=== PATIENT | female | born 1990 | race American Indian/Alaskan Native ===

== ENCOUNTER 2021-04-09 08:05 | Inpatient (IN) | payer OTHER ==
--- NOTE | 2021-04-09 09:48 | History and Physical Report ---
History of Present Illness Date of examination: 04/09/21 Date of admission: 04/09/21 09:26 Chief complaint: Contractions History of present illness: 30 year old presents to L&D with complaint of contractions. records requested and received. Patient received care at [facility]. Was also seen by [facility] due to obesity and graves disease. LMP 05/27/2020. EDC 04/07/2021 (based on US). significant for the following: obesity, macrosomia (EFW on 03/31/2021 was 10 lb 10 oz {4824 grams} at [facility] office), elevated 1 hour sugar test with normal 3 hour OGTT, excessive weight gain during , enlarged thyroid/graves disease (not on any medications for), abdominal hernia, abnormal pap. labs are as follows: B+, antibody screen negative, rubella immune, varicella nonimmune, hepatitis B surface antigen negative, HIV negative, RPR nonreactive, gonorrhea negative, chlamydia negative, trichomonas negative, OSB negative, materniT 21 low risk, GBS negative, 1 hour sugar test 147 (normal 3 hour OGTT). Past History Past Medical History: other (obesity, graves disease/hyperthyroidism, umbilical hernia, vitamin D deficiency) Past Surgical History: no surgical history [facility] History: denies: chlamydia, gonorrhea, hepatitis B, hepatitis C, herpes, HIV, syphilis, trichomonas Family/Genetic History: diabetes, hypertension, cancer Social history: lives with family, full code. denies: smoking, alcohol abuse, prescription drug abuse, IV drug use - Obstetrical History Expected Date of Delivery: 04/07/21 Actual Gestation: 40 Week(s) 2 Day(s) : 2 Para: 1 Hx # Term Pregnancies: 1 Number of Pregnancies: 0 Spontaneous Abortions: 0 Induced : 0 Number of Living Children: 1 Medications and Allergies Allergies Allergy/AdvReac Type Severity Reaction Status Date / Time No Known Allergies Allergy Verified 04/09/21 08:17 Active Meds: Active Medications Acetaminophen (Acetaminophen 325 Mg Tab) 650 mg PO Q4H PRN PRN Reason: Pain, Mild (1-3) Carboprost Tromethamine (Carboprost Tromethamine 250 Mcg/1 Ml Inj) 250 mcg IM ONCE PRN PRN Reason: Uterine Bleeding Ephedrine Sulfate (Ephedrine Sulfate 50 Mg/1 Ml Inj) 10 mg IV Q2M PRN PRN Reason: Hypotension Fentanyl (Fentanyl 100 Mcg/2 Ml Inj) 100 mcg IV Q2H PRN PRN Reason: Pain,Severe (7-10) LABOR PAIN Lactated Ringer's (Lactated Ringers) 1,000 mls @ 125 mls/hr IV DIRECT ZAHRA Oxytocin/Sodium Chloride (Pitocin/Ns 30 Unit/500ml) 30 units in 500 mls @ 40 mls/hr IV TITR ZAHRA; Protocol Ampicillin Sodium (Ampicillin/Ns 2 Gm/100 Ml) 2 gm in 100 mls @ 100 mls/hr IV ONCE ONE; Protocol Stop: 04/09/21 10:59 Ampicillin Sodium (Ampicillin/Ns 1 Gm/50 Ml) 1 gm in 50 mls @ 100 mls/hr IV Q4H ZAHRA; Protocol Lidocaine (Lidocaine (2%) 20 Mg/1 Ml Vial 20 Ml Mdv) 20 ml INFILTRATI ONCE ONE Stop: 04/09/21 10:01 Loperamide HCl (Loperamide 2 Mg Cap) 2 mg PO ONCE PRN PRN Reason: give with Hemabate Methylergonovine Maleate (Methylergonovine Maleate 0.2 Mg/Ml Vial) 0.2 mg IM ONCE PRN PRN Reason: Uterine Bleeding Mineral Oil (Mineral Oil 30 Ml Oral Liqd) 30 ml PO QHS PRN PRN Reason: Constipation Misoprostol (Misoprostol 200 Mcg Tab) 800 mcg NC ONCE PRN PRN Reason: Uterine Bleeding Nalbuphine HCl (Nalbuphine 10 Mg/1 Ml Inj) 10 mg IV Q2H PRN PRN Reason: Pain, Moderate (4-6) Oxytocin (Oxytocin 10 Unit/1 Ml Inj) 10 unit IM ONCE PRN PRN Reason: Uterine Bleeding Terbutaline Sulfate (Terbutaline 1 Mg/1 Ml Inj) 0.25 mg SUB-Q ONCE PRN PRN Reason: Hyperstimulation/Hypertonicity Review of Systems All systems: negative (contractions) - Vital Signs Vital signs: Vital Signs Pulse BP 101 H 147/95 04/09/21 08:31 04/09/21 08:31 Temp Pulse Resp BP Pulse Ox 96 H 146/93 97 04/09/21 09:46 04/09/21 08:46 04/09/21 09:46 - Physical Exam Abdomen: Positive: normal appearance, soft. Negative: distention, tenderness, guarding, rigidity Genitourinary (Female): Positive: normal external genitalia, normal perenium. Negative: perineal/vulvar lesions Vagina: Positive: normal moisture Uterus: Positive: enlarged (large for dates). Negative: tender Anus/Rectum: Positive: normal perianal skin Extremities: Positive: edema (bilateral dependent edema) - Obstetrical Uterine Contraction Monitor Mode: External Cervical Dilatation: 5 Cervical Effacement Percentage: 80 station: -3 Uterine Contraction Pattern: Regular Uterine Contraction Intensity: Moderate Results Result Diagrams: 04/09/21 09:47 All other labs normal. Assessment and Plan A: at 40 weeks, 2 days gestation. Active labor. GBS negative. macrosomia. Obesity. PIH. Graves disease/hyperthyroidism. P: Admit. PIH labs. section due to macrosomia. Consulted with Dr. Natarajan re: macrosomia and other risk factors for shoulder dystocia. Dr. Natarajan recommends section. Informed patient of MD recommendation for section and orders put in. Discussed MD recommendation for C/S with patient. Patient refused section. Discussed with patient risks associated with attempting vaginal with macrosomic fetus, excessive maternal weight gain, and elevated 1 hour sugar test. Advised patient of all risks including shoulder dystocia with potential for injury {including brachial plexus injury and oxygen deprivation and/or } and mat ernal injury, hemorrhage, emergent operative delivery, lacerations of canal. Patient states she understands the risks and is willing to assume the risks and wants to proceed with labor and vaginal in spite of these risks.
[2021-04-09] MEDS ORDERED: AMPICILLIN/NS 2 GM/100 ML 2 GM/100 ML BAG IV ONE (10:00)
[2021-04-09] MEDS ORDERED: fentaNYL 100 MCG/2 ML INJ IV PRN (10:00)
[2021-04-09] MEDS ORDERED: METOCLOPRAMIDE 10 MG/2 ML INJ IV SCH (10:00)
[2021-04-09] MEDS ORDERED: LIDOCAINE (2%) 20 MG/1 ML VIAL 20 ML MDV INFILTRATI ONE (10:00)
[2021-04-09] MEDS ORDERED: OXYTOCIN DRIP 30 UNITS/500 ML BAG IV SCH ×2 (10:00→23:45)
[2021-04-09] MEDS ORDERED: LACTATED RINGERS 1,000 ML IV SCH (10:00)
[2021-04-09] MEDS ORDERED: ePHEDrine SULFATE 50 MG/1 ML INJ IV PRN ×2 (10:00→12:00)
[2021-04-09] MEDS ORDERED: MINERAL OIL 30 ML ORAL LIQD PO PRN (10:00)
[2021-04-09] MEDS ORDERED: miSOPROStol 200 MCG TAB PR PRN (10:00)
[2021-04-09] MEDS ORDERED: BICITRA ORAL LIQD 30ML PO SCH (10:00)
[2021-04-09] MEDS ORDERED: CARBOPROST TROMETHAMINE 250 MCG/1 ML INJ IM PRN (10:00)
[2021-04-09] MEDS ORDERED: ACETAMINOPHEN 325 MG TAB PO PRN (10:00)
[2021-04-09] MEDS ORDERED: NalbUPHINE 10 MG/1 ML INJ IV PRN (10:00)
[2021-04-09] MEDS ORDERED: OXYTOCIN 10 UNIT/1 ML INJ IM PRN (10:00)
[2021-04-09] MEDS ORDERED: TERBUTALINE 1 MG/1 ML INJ SUB-Q PRN (10:00)
[2021-04-09] MEDS ORDERED: METHYLERGONOVINE MALEATE 0.2 MG/ML VIAL IM PRN (10:00)
[2021-04-09] MEDS ORDERED: LOPERAMIDE 2 MG CAP PO PRN (10:00)
[2021-04-09] MEDS ORDERED: FAMOTIDINE 20 MG/2 ML INJ IV SCH (10:00)
[2021-04-09 10:20] LABS: Hematocrit 38.6 % (30.3-42.9); Hemoglobin 12.5 gm/dl (10.1-14.3); Mean Corpuscular HGB Conc 32 % (30-34); Mean Corpuscular Volume 84 fl (79-97); Platelet Count 238 K/mm3 (140-440); Red Blood Count 4.57 M/mm3 (3.65-5.03); Red Cell Distribution Width 13.4 % (13.2-15.2)
[2021-04-09] MEDS: LACTATED RINGERS 1,000 ML IV SCH ×2 (10:44→12:31)
[2021-04-09 10:48] LABS: Hepatitis C Virus Antibody Non-Reactive (NonReactive)
[2021-04-09 11:01] LABS: Alanine Aminotransferase 10 units/L (7-56); Albumin 3.8 g/dL (3.9-5); BUN/Creatinine Ratio 30; Blood Urea Nitrogen 9 mg/dL (7-17); Calcium 9.2 mg/dL (8.4-10.2); Hemolysis Index 14; Uric Acid 2.7 mg/dL (3.5-7.6)
[2021-04-09] MEDS ORDERED: GENTAMICIN 100 MG in SODIUM CHLORIDE 0.9% 100 ML IV SCH (11:30)
--- NOTE | 2021-04-09 11:33 | Event Note ---
Date: 04/09/21 Temp. 98.2. Mild maternal tachycardia. WBC 16.8. Patient states she may have been leaking fluid since last night. No tachycardia. Ampicillin and Gentamicin ordered. Urine C&S also ordered.
--- NOTE | 2021-04-09 11:34 | Anesthesia Consultation ---
Anesthesia Consult and Med Hx Date of service: 04/09/21 - Airway Anesthetic Teeth Evaluation: Poor ROM Head & Neck: Adequate Mental/Hyoid Distance: Adequate Mallampati Class: Class II Intubation Access Assessment: Probably Good - Pulmonary Exam CTA: Yes - Cardiac Exam Cardiac Exam: RRR - Pre-Operative Health Status ASA Pre-Surgery Classification: ASA2 Proposed Anesthetic Plan: Epidural - Pulmonary Hx Smoking: Yes (former x 10 months) Hx Asthma: No Hx Respiratory Symptoms: No SOB: No COPD: No Home Oxygen Therapy: No Hx Pneumonia: No Hx Sleep Apnea: No - Cardiovascular System Hx Hypertension: No Hx Coronary Artery Disease: No Hx Heart Attack/AMI: No Hx Angina: No Hx Percutaneous Transluminal Coronary Angioplasty (PTCA): No Hx Cardia Arrhythmia: Yes (2019 r/t Hyperthyroid none currently) Hx Pacemaker: No Hx Internal Defibrillator: No Hx Valvular Heart Disease: No Hx Heart Murmur: No Hx Peripheral Vascular Disease: No - Central Nervous System Hx Seizures: No CVA: No Hx Back Pain: Yes Hx Psychiatric Problems: No - Gastrointestinal Hx Ulcer: No Hx Gastroesophageal Reflux Disease: Yes - Endocrine Hx Renal Disease: No Hx End Stage Renal Disease: No Hx Cirrhosis: No Hx Liver Disease: No Hx Insulin Dependent Diabetes: No Hx Non-Insulin Dependent Diabetes: No Hx Thyroid Disease: No Hx Hypothyroidism: No Hx Hyperthyroidism: Yes - Hematic Hx Anemia: No Hx Sickle Cell Disease: No - Other Systems Hx Alcohol Use: No Hx Substance Use: No Hx Cancer: No Hx Obesity: Yes
--- NOTE | 2021-04-09 11:35 | Progress Note ---
Labor Epidural - Labor Epidural Start Time: 10:55 Stop Time: 11:13 Performed by:: ANJELICA MADDEN Procedure: Patient is requesting a laboring epidural for laboring pain. Patient IDed, H&P reviewed, all questions and concerns were answered, and consent was signed. Timeout was performed at bedside. Patient in sitting position. Sterile prep and drape was performed. [3] ml of 1% lidocaine skin wheal at L[3]- L [4]. 17- gauge Tuohy epidural needle was advanced to loss of resistance with saline technique 6cm. Single dural perforation via 25 guage spinal needle placed through the shaft of Epidural needle. Positive CSF via spinal needle. Negative CSF negative blood via Epidural needle. Epidural catheter advanced to [10] centimeters. [NEGATIVE] Aspiration [NEGATIVE] test dose. Negative Paresthesia. Sterile dressing applied. Patient tolerated procedure.
--- NOTE | 2021-04-09 11:51 | Event Note ---
Date: 04/09/21 SVE /-3. Patient has received epidural and is now comfortable.
[2021-04-09] MEDS ORDERED: fentaNYL-BUPIV 2 MCG/ML-0.125% 200 MCG/100 ML BAG EPIDURAL SCH (12:00)
[2021-04-09] MEDS ORDERED: NALOXONE 2 MG/2 ML INJ IV PRN (12:00)
[2021-04-09] MEDS ORDERED: GENTAMICIN/NS 100 MG/100 ML 100 MG/100 ML BAG IV SCH (12:30)
--- NOTE | 2021-04-09 13:22 | Event Note ---
Date: 04/09/21 FHR tracing now with minimal to absent variability, baseline heart rate of 145 with occasional variable FHR deceleration. Cervix is unchanged and station is still high (6/90/-3 to -4). Position change, IV fluid bolus, and oxygen per face mask did not improve FHR tracing. No acceleration noted with scalp stimulation. Patient states she will now accept a section for delivery. Called and informed Dr. Natarajan of FHR tracing and patient agrees to section for delivery. C/S orders are in. Team notified.
--- NOTE | 2021-04-09 13:59 | Anesthesia Day of Surgery ---
Anesthesia Day of Surgery - Day of Surgery Patient Examined: Yes Patient H&P Reviewed: Yes Patient is NPO: Yes Beta Blockers: No Cardiac Clearance: No Pulmonary Clearance: No Morteza's Test: Negative
[2021-04-09] MEDS ORDERED: AMPICILLIN/NS 1 GM/50 ML 1 GM/50 ML BAG IV SCH (14:00)
[2021-04-09] MEDS ORDERED: ceFAZolin/Water 2 GM/20 ML 2 GM/20 ML SYRINGE IV ONE (14:12)
[2021-04-09 15:14] LABS: Free T4 (Free Thyroxine) 1.07 ng/dL (0.76-1.46)
[2021-04-09] MEDS ORDERED: AMPICILLIN/NS 2 GM/100 ML 2 GM/100 ML BAG IV SCH (17:00)
[2021-04-09] MEDS ORDERED: BUPIVACAINE/PF (0.5%) 5 MG/1 ML 30 ML VIAL INFILTRATI ONE (17:42)
[2021-04-09] MEDS ORDERED: ACETAMINOPHEN 500 MG TAB PO ONE (18:00)
[2021-04-09] MEDS ORDERED: PHENYLEPHRINE/NS 1,000 MCG/10 ML SYRINGE (OR USE) IV ONE (18:04)
[2021-04-09] MEDS ORDERED: ONDANSETRON 4 MG/2 ML INJ ONE (18:21)
[2021-04-09] MEDS ORDERED: LIDOCAINE MPF (2%) 20 MG/1 ML VIAL 5 ML ONE (19:46)
[2021-04-09] MEDS ORDERED: miSOPROStol 100 MCG TAB ONE (19:52)
[2021-04-09] MEDS ORDERED: BUPIVACAINE/PF (0.25%) 2.5 MG/ML 30 ML VIAL INFILTRATI ONE (20:15)
--- NOTE | 2021-04-09 20:19 | Event Note ---
Date: 04/09/21 LATE ENTRY: I spoke with pt and it took her more than 4hrs to decide to have section. pt had chorio and had to be started on amp and gent. The OR is not available and will proceed when same is available. pt to continue on oxygen until baby is delivered. Will also RAMIREZ culture with febrile morbidity, blood culture, urine culture and chest Xray. Plan of care discussed with pt and nurse. NICU and anesthesiologist aware.
--- NOTE | 2021-04-09 20:51 | Procedure Note ---
OB Delivery Note - Delivery Date of Delivery: 04/09/21 Surgeon: MAYLIN COBB Estimated blood loss: other (1097cc) - Section Preop diagnosis: nonreassuring FHR tracing, other (covid 19 positive, morbid obesity, LGA) Postop diagnosis: same (and PPH) section procedure: primary low transverse Disposition: floor Complications: intra-op hemorrhage Narrative: Date: 04/09/21 Surgeon: Maylin Cobb MD Non Acoustic Operator: Dr. April Valdez Preop Dx: IUP at 39.0wks, morbid obesity, febrile morbidity with chorio, Covid 19 positive Postop Dx: same Procedure : Primary Low Transverse Section Anesthesia: Epidural Intake: 2900cc Output: 350cc EBL: 1097cc by QBL After the risks, benefits and alternatives of procedure discussed, patient signed consents and was taken to the operating room. Pt was given epidural anesthesia. After same was adequate, patient was prepped and draped in the usua l sterile fashion. Sheehan catheter in place and draining clear urine. Pt was given prophylactic antibiotic per protocol and time out was done Pfannenstiel skin incision was made and taken sharply to the fascia and the incision extended using electrocautery. Superior edge of the fascia was grasped with dony clamps and the rectus muscle using blunt dissection and also using electrocautery. Lower portion of the fascia also sharply. Rectus muscle in the midline and Peritoneal cavity entered bluntly and extended with good visualization of the bladder. Harvey retractor placed without difficulty. The bladder flap was created sharply using metzenbaum scissors. Lower uterine segment then entered transversely and amniotic sac entered using allys clamps. Uterine incision extended using bandage scissors. Infant delivered, bulb suctioned, cord clamped and baby handed to waiting pediatricians. Placenta then delivered completely and uterine cavity cleared of all clots and debri. The uterus was not exteriorized and midline extension above the bladder also and closed in 2 layers using 0-monocryl suture in a running locked fashion and then an additional layer of imbrication suture. Excellent hemostasis noted. Surgicel powder placed without difficulty. The gutters were cleared of clots and debri and anterior peritoneum closed using 3-0 vicryl suture; Figure of 8 suture placed to left rectus muscle for active vessel bleeding. After same was hemostatic, the rectus muscle was reapproximated using 0-vicryl suture. Rectus fascia closed with 0-vicryl suture in a continuous fashion and the subcutaneous tissue copiously irrigated with normal saline and same re- approximated using 3-0 vicryl suture. Excellent hemostasis remains. The skin was closed with 4-0 monocryl suture and steristrips placed with pressure dressing. Sponge, lap, instrument and needle counts x3 were normal. Patient tolerated the procedure well and was taken to recovery room stable. Pt treated with IM methergine for uterine atony that was severe and IV pitocin and cytotec give per rectum as well. CBC to be done in recovery room and urine to be sent for culture with febrile morbidity. Findings: Viable female , APGARS 9/9 and weight 4460g. Fibroid uterus anteriorly seen 2x3cm, both tubes had extensive filmy adhesion to both ovaries bilaterally. The ovaries appear wnl. - Infant A at 1 minute: 9 at 5 minutes: 9 Gender: Female (wt 4460g; cloudy amniotic fluid)
[2021-04-09] MEDS: GENTAMICIN 450 MG in SODIUM CHLORIDE 0.9% 100 ML IV SCH (21:00)
--- NOTE | 2021-04-09 22:31 | XRay Report ---
XR chest 1V ap INDICATION / CLINICAL INFORMATION: Covid positive, febrile morbidity. COMPARISON: None available. FINDINGS: SUPPORT DEVICES: None. HEART /PULMONARY VASCULATURE: Heart is enlarged. No significant pulmonary vasculature congestion. LUNGS / PLEURA: No focal airspace consolidation. No sizable pleural effusion. No pneumothorax. IMPRESSION: Cardiac enlargement without overt failure or other acute chest process. Signer Name: Aleksandar Hammonds MD Signed: 04/09/2021 10:27 PM Workstation Name: [id number]
[2021-04-09 22:37] LABS: Hemoglobin 11.1 gm/dl (10.1-14.3); Mean Corpuscular HGB Conc 32 % (30-34); Mean Corpuscular Volume 84 fl (79-97); Platelet Count 219 K/mm3 (140-440); Red Blood Count 4.14 M/mm3 (3.65-5.03); Red Cell Distribution Width 13.7 % (13.2-15.2)
[2021-04-09 22:38] LABS: Bilirubin,Urine NEG (Negative); Blood,Urine MOD (Negative); Color,Urine Straw (Yellow); Mucus,Urine FEW /HPF; Protein,Urine <15 mg/dL mg/dL (Negative); Urobilinogen,Urine < 2.0 mg/dL (<2.0)
[2021-04-09 22:44] LABS: Amphetamine Screen,Urine Negative; Benzodiazepines Screen,Urine Negative; Cannabinoid Screen,Urine Negative; Cocaine Screen,Urine Negative; Methadone Screen,Urine Negative; Opiate Screen,Urine Negative
[2021-04-09] MEDS ORDERED: LANOLIN/ZINC/DIMETHICONE (LANSINOH) 7 GM TP PRN (23:29)
[2021-04-09] MEDS ORDERED: PROMETHAZINE 25 MG RECT SUPP PR PRN (23:29)
[2021-04-09] MEDS ORDERED: ONDANSETRON 4 MG/2 ML INJ IV PRN (23:29)
[2021-04-09] MEDS ORDERED: WITCH HAZEL/ GLYCERIN PAD TP PRN (23:29)
[2021-04-09] MEDS ORDERED: NALOXONE 0.4 MG/1 ML INJ IV PRN (23:29)
[2021-04-09] MEDS ORDERED: IBUPROFEN 600 MG TAB PO PRN (23:29)
[2021-04-10] MEDS: MORPHINE 4 MG/1 ML INJ IV PRN ×2 (00:02→04:29)
[2021-04-10] MEDS: AMPICILLIN/NS 2 GM/100 ML 2 GM/100 ML BAG IV SCH ×4 (00:57→22:20)
[2021-04-10] MEDS ORDERED: HYDROmorphone 1 MG/1 ML INJ IV PRN (01:20)
[2021-04-10 02:31] LABS: Band Neutrophils # (Manual) 2.2 K/mm3; Basophils % (Manual) 0 % (0.0-1.8); Eosinophils % (Manual) 0 % (0.0-4.3); RBC Morphology Normal; Total Cells Counted 100
[2021-04-10] MEDS: FERROUS SULFATE 325 MG TAB PO SCH (09:46)
[2021-04-10] MEDS: oxyCODONE /ACETAMINOPHEN 5-325MG TAB PO PRN ×3 (09:46→22:35)
--- NOTE | 2021-04-10 10:46 | Progress Note ---
Assessment and Plan A: POD #1 +Covid Hyperthyroidism Chorio VSS with Mild Tachycardia P: Follow Routine PostOp Orders Continue Standard Covid Isolation and Precautions Continue IV ABX as ordered Subjective - Subjective Date of service: 04/10/21 Patient reports: appetite normal, voiding normally, pain well controlled, ambulating normally : doing well, bottle feeding (and ) Objective - Vital Signs Latest vital signs: Vital Signs Temp Pulse Resp BP BP Pulse Ox Pulse Ox 04/10/21 07:35 98.2 F 108 H 21 140/74 95 04/10/21 04:51 97.7 F 99 H 20 114/69 92 04/09/21 23:00 96 04/09/21 22:25 106 H 18 130/78 98 04/09/21 22:18 114 H 103/64 99 04/09/21 22:14 111 H 105/64 04/09/21 22:13 111 H 98 04/09/21 22:10 114 H 18 115/56 98 04/09/21 22:08 114 H 115/56 98 04/09/21 22:03 117 H 126/59 98 04/09/21 22:00 99.0 F 116 H 20 122/55 98 04/09/21 21:58 116 H 122/55 98 04/09/21 21:54 112 H 126/59 04/09/21 21:53 113 H 98 04/09/21 21:49 116 H 84 04/09/21 21:48 121 H 96 04/09/21 21:45 114 H 16 127/62 96 04/09/21 21:44 114 H 83 L 04/09/21 21:43 56 L 127/62 85 04/09/21 21:38 124 H 131/59 77 L 04/09/21 21:33 111 H 124/59 96 04/09/21 21:28 112 H 129/62 98 04/09/21 21:25 122 H 20 129/62 97 04/09/21 21:23 116 H 96 04/09/21 21:18 107 H 127/66 95 04/09/21 21:13 108 H 137/68 98 04/09/21 21:10 112 H 17 135/60 97 04/09/21 21:09 112 H 135/60 04/09/21 21:08 106 H 96 04/09/21 21:04 107 H 158/60 04/09/21 21:03 102 H 98 04/09/21 20:58 108 H 147/76 100 04/09/21 20:55 98.8 F 109 H 18 147/76 99 04/09/21 20:53 105 H 139/67 99 04/09/21 20:48 107 H 136/66 100 04/09/21 20:43 103 H 138/68 100 04/09/21 20:41 108 H 90 04/09/21 20:40 108 H 22 138/68 90 04/09/21 20:38 105 H 17 141/68 100 04/09/21 20:34 102 H 139/65 04/09/21 20:33 102 H 18 139/65 93 04/09/21 20:29 104 H 92 04/09/21 20:28 107 H 20 129/74 98 04/09/21 20:23 99.7 F H 106 H 20 118/57 97 04/09/21 17:47 128 H 100 04/09/21 17:44 98.9 F 130 H 14 112/58 112/58 100 04/09/21 17:42 124 H 100 04/09/21 17:38 134 H 106/59 04/09/21 17:37 123 H 100 04/09/21 17:32 124 H 100 04/09/21 17:27 127 H 100 04/09/21 17:22 128 H 100 04/09/21 17:17 126 H 99 04/09/21 17:12 131 H 100 04/09/21 17:07 133 H 100 04/09/21 17:04 101.1 F H 20 100 04/09/21 17:02 124 H 100 04/09/21 16:59 127 H 102/52 04/09/21 16:57 139 H 100 04/09/21 16:52 137 H 100 04/09/21 16:47 126 H 100 04/09/21 16:42 131 H 100 04/09/21 16:37 130 H 100 04/09/21 16:32 133 H 100 04/09/21 16:28 136 H 104/65 04/09/21 16:27 137 H 100 04/09/21 16:22 131 H 100 04/09/21 16:17 129 H 100 04/09/21 16:12 134 H 100 04/09/21 16:07 126 H 100 04/09/21 16:02 129 H 100 04/09/21 15:57 126 H 122/53 100 04/09/21 15:52 125 H 100 04/09/21 15:47 125 H 100 04/09/21 15:42 129 H 100 04/09/21 15:37 126 H 100 04/09/21 15:32 121 H 100 04/09/21 15:29 124 H 92 04/09/21 15:27 120 H 110/66 85 04/09/21 15:22 123 H 84 04/09/21 15:17 121 H 100 04/09/21 15:12 119 H 100 04/09/21 15:07 117 H 100 04/09/21 15:02 114 H 100 04/09/21 14:57 116 H 80/46 100 04/09/21 14:56 121 H 94 04/09/21 14:52 110 H 100 04/09/21 14:47 117 H 100 04/09/21 14:45 117 H 114/64 04/09/21 14:42 118 H 100 04/09/21 14:39 126 H 82 L 04/09/21 14:37 119 H 100 04/09/21 14:32 123 H 99 04/09/21 14:27 118 H 106/57 100 04/09/21 14:23 125 H 118/59 04/09/21 14:22 128 H 100 04/09/21 14:17 113 H 100 04/09/21 14:12 113 H 100 04/09/21 14:07 122 H 100 04/09/21 14:02 119 H 100 04/09/21 13:58 108 H 113/58 04/09/21 13:57 109 H 100 04/09/21 13:52 116 H 100 04/09/21 13:47 109 H 100 04/09/21 13:42 112 H 100 04/09/21 13:37 117 H 100 04/09/21 13:32 119 H 100 04/09/21 13:27 120 H 122/72 100 04/09/21 13:22 129 H 100 04/09/21 13:17 122 H 100 04/09/21 13:12 113 H 100 04/09/21 13:07 116 H 100 04/09/21 13:02 105 H 100 04/09/21 12:58 114 H 116/59 04/09/21 12:57 108 H 100 04/09/21 12:52 109 H 100 04/09/21 12:47 104 H 100 04/09/21 12:42 128 H 100 04/09/21 12:37 119 H 100 04/09/21 12:32 119 H 100 04/09/21 12:27 122 H 100 04/09/21 12:26 115 H 103/54 04/09/21 12:25 120 H 91/50 04/09/21 12:22 117 H 100 04/09/21 12:19 111 H 84/48 04/09/21 12:17 107 H 100 04/09/21 12:15 106 H 85/48 04/09/21 12:12 107 H 100 04/09/21 12:09 108 H 102/58 04/09/21 12:07 113 H 100 04/09/21 12:06 112 H 99/53 04/09/21 12:02 118 H 100 04/09/21 12:00 114 H 99/57 04/09/21 11:57 110 H 100 04/09/21 11:56 116 H 119/55 04/09/21 11:52 114 H 100 04/09/21 11:49 106 H 103/55 04/09/21 11:47 114 H 100 04/09/21 11:45 105 H 112/60 04/09/21 11:42 112 H 99 04/09/21 11:39 109 H 100/56 04/09/21 11:37 111 H 98 04/09/21 11:35 107 H 105/58 04/09/21 11:33 20 112/60 04/09/21 11:32 103 H 100 04/09/21 11:27 120 H 100 04/09/21 11:24 106 H 141/79 04/09/21 11:22 110 H 100 04/09/21 11:19 110 H 136/75 04/09/21 11:17 112 H 100 04/09/21 11:14 117 H 142/70 04/09/21 11:12 118 H 99 04/09/21 11:09 112 H 134/67 04/09/21 11:08 109 H 74 L 04/09/21 11:07 115 H 98 04/09/21 11:04 110 H 139/73 04/09/21 11:02 104 H 92 04/09/21 10:56 103 H 90 04/09/21 10:55 101 H 90 04/09/21 10:50 113 H 99 04/09/21 10:45 105 H 98 04/09/21 10:42 105 H 136/75 04/09/21 10:40 103 H 99 Intake and Output 04/09/21 04/10/21 04/10/21 22:59 06:59 14:59 Intake Total 2500 515 Output Total 2900 Balance 2500 -2385 Intake: IV 2500 275 AMPICILLIN/NS 2 GM/100 ML 100 2 gm In 100 ml @ 100 mls /hr IV Q6H ZAHRA Rx#: [id number] CLEOCIN 900 MG/50 mL 900 50 mg In 50 ml @ 100 mls/hr IV Q8H ZAHRA Rx#:[id number] Left Forearm 125 Oral 240 Output: Urine 2900 Indwelling Catheter 1900 Other: Total, Intake Amount 120 Total, Output Amount 400 # Voids Indwelling Catheter 1 - Exam Breasts: Present: normal Cardiovascular: Present: Regular rate Lungs: Present: Clear to auscultation, Normal air movement Abdomen: Present: normal appearance, soft, normal bowel sounds Uterus: Present: normal, firm, fundal height below umbilicus Extremities: Present: normal Incision: Present: dry, dressed - Labs Labs: Abnormal lab results 04/09/21 04/09/21 04/09/21 Range/Units 09:47 10:14 21:40 WBC 22.4 H (4.5-11.0) K/mm3 MCH 27 L (28-32) pg Seg Neuts % (Manual) 82.0 H (40.0-70.0) % Lymphocytes % (Manual) 3.0 L (13.4-35.0) % Seg Neutrophils # Man 18.4 H (1.8-7.7) K/mm3 Lymphocytes # (Manual) 0.7 L (1.2-5.4) K/mm3 Monocytes # (Manual) 1.1 H (0.0-0.8) K/mm3 Sodium 133 L (137-145) mmol/L Carbon Dioxide 16 L (22-30) mmol/L Creatinine 0.3 L (0.6-1.2) mg/dL Uric Acid 2.7 L (3.5-7.6) mg/dL Alkaline Phosphatase 156 H (35-129) units/L Lactate Dehydrogenase 251 H (91-180) units/L Albumin 3.8 L (3.9-5) g/dL SARS-CoV-2 (PCR) Positive A (Negative)
[2021-04-10 11:09] LABS: Red Blood Count 4.29 M/mm3 (3.65-5.03)
[2021-04-10 11:10] LABS: Hematocrit 36.1 % (30.3-42.9); Hemoglobin 11.6 gm/dl (10.1-14.3); Mean Corpuscular HGB Conc 32 % (30-34); Mean Corpuscular Volume 84 fl (79-97); Platelet Count 296 K/mm3 (140-440); Red Cell Distribution Width 13.7 % (13.2-15.2)
[2021-04-10 11:55] LABS: Basophils % (Manual) 0 % (0.0-1.8); Eosinophils % (Manual) 0 % (0.0-4.3); Platelet Estimate Consistent w Auto; RBC Morphology Normal; Total Cells Counted 100
--- NOTE | 2021-04-10 15:08 | Post Anesthesia Evaluation ---
- Post Anesthesia Evaluation Patient Participated: Yes Airway Patent: Yes Stable Respiratory Function: Yes Nausea/Vomiting: No Temp > 96.8F: Yes Pain Manageable: Yes Adequeate Hydration: Yes Anesthesia Complications: No Block Receding Appropriately: Yes Patient on Ventilator: No
[2021-04-10] MEDS: GENTAMICIN 450 MG in SODIUM CHLORIDE 0.9% 100 ML IV SCH (21:14)
[2021-04-11] MEDS: AMPICILLIN/NS 2 GM/100 ML 2 GM/100 ML BAG IV SCH (04:19)
[2021-04-11] MEDS: oxyCODONE /ACETAMINOPHEN 5-325MG TAB PO PRN ×3 (06:00→22:08)
[2021-04-11] MEDS: MAGNESIUM HYDROXIDE (MOM) ORAL LIQD UDC PO PRN ×2 (08:55→15:11)
[2021-04-11] MEDS: SIMETHICONE 80 MG CHEW TAB PO PRN ×2 (08:55→15:11)
[2021-04-11] MEDS: FERROUS SULFATE 325 MG TAB PO SCH ×2 (08:55→15:14)
[2021-04-11] MEDS: SENNOSIDES 8.6 MG TAB PO PRN ×2 (08:55→15:11)
--- NOTE | 2021-04-11 09:25 | Progress Note ---
Assessment and Plan A: S/P Primary LTCS POD 2 + Covid 19 Chorio Mild abd distention (no gas) Hyperthyroidism Morbid obesity Elevated wbc P: Continue routine pp orders Covid prec Awaiting CBC results Simeticone/milk of mg and ambulation advised Cont abt Nurse to notify provider if no gas Consulted with Dr Natarajan D/C home within 24-48 hrs if stable Subjective - Subjective Date of service: 04/11/21 Principal diagnosis: s/p primary LTCS Day 2 Patient reports: appetite normal, voiding normally, pain well controlled, ambulating normally, other (Abd slightly distended with hypoactive bs. Pt reports no gas yet.) : doing well, nursing well Objective - Vital Signs Latest vital signs: Vital Signs Temp Pulse Resp BP BP Pulse Ox Pulse Ox 04/11/21 08:17 97.7 F 93 H 20 114/70 98 04/11/21 07:00 18 04/11/21 06:00 18 04/11/21 00:30 98.4 F 77 16 104/79 04/10/21 23:35 18 04/10/21 22:35 18 04/10/21 20:00 98 Intake and Output 04/10/21 04/11/21 04/11/21 22:59 06:59 14:59 Intake Total 450 105 Balance 450 105 Intake: IV 150 105 AMPICILLIN/NS 2 GM/100 ML 100 100 2 gm In 100 ml @ 100 mls /hr IV Q6H ZAHRA Rx#: [id number] CLEOCIN 900 MG/50 mL 900 50 mg In 50 ml @ 100 mls/hr IV Q8H ZAHRA Rx#:[id number] Right Forearm 5 Intake, Free Water 300 Other: # Voids Void 1 1 - Exam Breasts: Present: normal Lungs: Present: Clear to auscultation Abdomen: Present: soft, distention, other (hypoactive bs) Vulva: both: normal Uterus: Present: normal, firm, fundal height below umbilicus Extremities: Present: normal Incision: Present: normal, dry, intact - Labs Labs: Abnormal lab results 04/10/21 Range/Units 10:49 WBC 24.5 H (4.5-11.0) K/mm3 MCH 27 L (28-32) pg Seg Neuts % (Manual) 82.0 H (40.0-70.0) % Lymphocytes % (Manual) 13.0 L (13.4-35.0) % Seg Neutrophils # Man 20.1 H (1.8-7.7) K/mm3 Monocytes # (Manual) 1.2 H (0.0-0.8) K/mm3
[2021-04-11 09:52] LABS: Basophils % (Auto) 0.2 % (0.0-1.8); Eosinophils % (Auto) 0.3 % (0.0-4.3); Hematocrit 33.9 % (30.3-42.9); Hemoglobin 10.9 gm/dl (10.1-14.3); Lymphocytes # (Auto) 2.3 K/mm3 (1.2-5.4); Lymphocytes % (Auto) 14.7 % (13.4-35.0); Mean Corpuscular HGB Conc 32 % (30-34); Mean Corpuscular Volume 84 fl (79-97); Monocytes # (Auto) 1.2 K/mm3 (0.0-0.8); Monocytes % (Auto) 7.8 % (0.0-7.3); Platelet Count 270 K/mm3 (140-440); Red Blood Count 4.04 M/mm3 (3.65-5.03); Red Cell Distribution Width 13.9 % (13.2-15.2)
[2021-04-11] MEDS: IBUPROFEN 800 MG TAB PO PRN (15:11)
[2021-04-11] MEDS: AMOXICILLIN/K CLAV 875/125MG TAB PO SCH (22:09)
[2021-04-12] MEDS: IBUPROFEN 800 MG TAB PO PRN ×2 (00:42→08:43)
[2021-04-12] MEDS: oxyCODONE /ACETAMINOPHEN 5-325MG TAB PO PRN (06:22)
[2021-04-12] MEDS: FERROUS SULFATE 325 MG TAB PO SCH (08:43)
[2021-04-12] MEDS: AMOXICILLIN/K CLAV 875/125MG TAB PO SCH (08:43)
--- NOTE | 2021-04-12 09:23 | Progress Note ---
Assessment and Plan A: POD #3 +Covid Hyperthyroidism P: Follow Routine PostOp Orders Continue Standard Covid Isolation and Precautions D/C home today RTO in One Week Subjective - Subjective Date of service: 04/12/21 Principal diagnosis: s/p primary LTCS Day 2 Patient reports: appetite normal, voiding normally, pain well controlled, flatus, bowel movement, ambulating normally : doing well, bottle feeding (and ) Objective - Vital Signs Latest vital signs: Vital Signs Temp Pulse Resp BP Pulse Ox Pulse Ox 04/12/21 08:19 97.5 F L 18 99/47 04/12/21 06:22 18 04/12/21 01:56 98.1 F 83 16 109/61 98 04/12/21 01:42 18 04/12/21 00:42 18 04/11/21 23:08 18 04/11/21 22:08 18 04/11/21 22:00 99 04/11/21 16:33 97.3 F L 95 H 16 105/69 99 Intake and Output 04/11/21 04/12/21 04/12/21 22:59 06:59 14:59 Intake Total 200 660 360 Balance 200 660 360 Intake: Oral 200 360 Intake, Free Water 660 Other: Total, Intake Amount 200 360 # Voids Void 1 1 1 - Exam Breasts: Present: normal Cardiovascular: Present: Regular rate Lungs: Present: Clear to auscultation, Normal air movement Abdomen: Present: normal appearance, soft, normal bowel sounds Uterus: Present: normal, firm, fundal height below umbilicus Extremities: Present: normal Incision: Present: normal, dry, intact - Labs Labs: Abnormal lab results 04/11/21 Range/Units 09:35 WBC 15.6 H (4.5-11.0) K/mm3 MCH 27 L (28-32) pg [place] % (Auto) 7.8 H (0.0-7.3) % [place] # (Auto) 1.2 H (0.0-0.8) K/mm3 Seg Neutrophils % 77.0 H (40.0-70.0) % Seg Neutrophils # 12.0 H (1.8-7.7) K/mm3
--- NOTE | 2021-04-12 09:24 | Discharge Summary ---
Providers - Providers Date of Admission: 04/09/21 09:26 Date of discharge: 04/12/21 Attending physician: LORENA COBB Primary care physician: WATER PURIFIER Hospitalization Reason for admission: section Delivery: Procedure: repeat low transverse Episiotomy: none Laceration: none Incision: normal, dry, intact Other procedures: none complications: none Discharge diagnosis: IUP at term delivered Condition at discharge: Good Disposition: 01 HOME / SELF CARE / HOMELESS Plan - Discharge Medications Prescriptions: Amoxicillin/Potassium Clav [Augmentin 875-125 Tablet] 1 each PO BID 5 Days #10 Ibuprofen [Motrin] 800 mg PO Q8HR PRN 21 Days #40 tablet PRN Reason: Pain, Moderate (4-6) oxyCODONE /ACETAMINOPHEN [Percocet 5/325] 1 tab PO Q4HR PRN 21 Days #30 tab PRN Reason: Pain , Severe (7-10) - Provider Discharge Summary Activity: routine, no sex for 6 weeks, no heavy lifting 4 weeks, no strenuous exercise Diet: routine Instructions: routine Additional instructions: [] Smoking cessation referral if applicable(refer to patient education folder for contact #) [] Refer to [facility] Booklet Call your doctor immediately for: * Fever > 100.5 * Heavy vaginal bleeding ( >1 pad per hour) * Severe persistent headache * Shortness of breath * Reddened, hot, painful area to leg or breast * Drainage or odor from incision. * Keep incision clean and dry at all times and follow doctor's instructions regarding bathing/showering - Follow up plan Follow up: LORENA COBB MD [Staff Physician] - 7 Days
[2021-04-12 11:40] VITALS: BP 112/74
== END 2021-04-12 11:20 | disposition home or self-care (01) | DRG 765 ==
LOC: TRG 08:05 → APU 08:06 → TRG 09:34 → LD 10:09 → OB 22:39
PROVIDERS: ADMIT Obstetrics & Gynecology; ATTEND Obstetrics & Gynecology
PROC: 10D00Z1 Extraction of Products of Conception, Low, Open Approach (ICD-10-PCS; principal; 2021-04-09)
PROC: 3E0R3BZ Introduction of Anesthetic Agent into Spinal Canal, Percutaneous Approach (ICD-10-PCS; 2021-04-09)
PROC: 00HU33Z Insertion of Infusion Device into Spinal Canal, Percutaneous Approach (ICD-10-PCS; 2021-04-09)
DX: O76 Abnormality in fetal heart rate and rhythm complicating labor and delivery (principal); U07.1 COVID-19; O36.63X0 Maternal care for excessive fetal growth, third trimester, not applicable or unspecified; O98.52 Other viral diseases complicating childbirth; Z3A.40 40 weeks gestation of pregnancy; Z37.0 Single live birth; O99.52 Diseases of the respiratory system complicating childbirth; J98.8 Other specified respiratory disorders; O99.284 Endocrine, nutritional and metabolic diseases complicating childbirth; E05.00 Thyrotoxicosis with diffuse goiter without thyrotoxic crisis or storm; O99.214 Obesity complicating childbirth; O13.4 Gestational [pregnancy-induced] hypertension without significant proteinuria, complicating childbirth; K21.9 Gastro-esophageal reflux disease without esophagitis; O99.62 Diseases of the digestive system complicating childbirth; E66.01 Morbid (severe) obesity due to excess calories; O99.892 Other specified diseases and conditions complicating childbirth; R00.0 Tachycardia, unspecified
CPT/HCPCS: 36415; 59025; 71045; 80053; 80307; 81001; 83036; 83615; 84439; 84443; 84550; 85007; 85025; 85027; 86592; 86706; 86803; 86850; 86900; 86901; 87040; 87086; 87806; 88307; G0378; J3490; J7502; J0290; J1170; J1580; J2270; J2370; J2405; J2765; J7120; U0003